=== PATIENT | male | born 1975 | race Caucasian/White ===

== ENCOUNTER 2018-08-19 13:57 | Emergency (ER) | payer BC, OTHER ==
--- NOTE | 2018-08-19 16:33 | RAD ---
RADIOGRAPH LEFT HEEL 2 VIEWS: 08/19/18 HISTORY: 42-year-old male with traumatic heel pain. FINDINGS: Bohler's angle is maintained. Trabecular markings are preserved. No fracture identified. No large ent hesophytes. IMPRESSION: Negative. POS: [facility]
--- NOTE | 2018-08-19 16:35 | RAD ---
THREE VIEWS LEFT FOOT 08/19/18 HISTORY: Left foot injury. FINDINGS: The Lisfranc joint is normally aligned. No acute fracture or dislocation is seen. There is osseous de nsity seen at the posterior and dorsal aspect of the navicular bone which may represent prior injury. This is corticated. Tiny plantar calcaneal enthesophyte is noted. IMPRESSION: No acute osseous abnormality left foot. POS: [facility]
== END 2018-08-19 15:17 | disposition home or self-care (01) ==
LOC: MADERS 13:57
DX: S90.32XA Contusion of left foot, initial encounter (principal); G47.30 Sleep apnea, unspecified; Z87.891 Personal history of nicotine dependence; Z79.899 Other long term (current) drug therapy; W17.89XA Other fall from one level to another, initial encounter

== ENCOUNTER 2019-01-18 20:01 | Emergency (ER) | payer BC ==
[2019-01-18] MEDS ORDERED: Sodium Chloride 0.9% 1,000 ML ONE (20:22)
[2019-01-18] MEDS ORDERED: methylPREDNISolone Sod Succ/PF 125 MG/2 ML VIAL ONE (20:23)
[2019-01-18] MEDS ORDERED: Famotidine In NaCl 20 mg/50 ml Premix Bag ONE (20:23)
== END 2019-01-18 21:38 | disposition home or self-care (01) ==
LOC: MADERS 20:01
DX: T78.40XA Allergy, unspecified, initial encounter (principal); G47.00 Insomnia, unspecified; Z87.891 Personal history of nicotine dependence
CPT/HCPCS: 96365; 96375; J2930; J7050

== ENCOUNTER 2020-07-02 12:59 | Emergency (ER) | payer BC ==
[2020-07-02] MEDS ORDERED: traMADol HCl 50 MG TAB ONE (13:31)
== END 2020-07-02 13:40 | disposition home or self-care (01) ==
LOC: MADERS 12:59
DX: M54.5 Low back pain (principal); M19.90 Unspecified osteoarthritis, unspecified site; Z94.7 Corneal transplant status; Z87.891 Personal history of nicotine dependence; Z79.899 Other long term (current) drug therapy
CPT/HCPCS: 99283

== ENCOUNTER 2020-07-29 09:07 | Emergency (ER) | payer BC ==
[2020-07-29] MEDS ORDERED: Dexamethasone 10 MG/ML VIAL ONE (09:31)
[2020-07-29] MEDS ORDERED: HYDROcodone/Acetaminophen 5/325 mg Tablet ONE (09:31)
[2020-07-29] MEDS ORDERED: Ketorolac Tromethamine 60 MG/2 ML VIAL ONE (09:31)
[2020-07-29] MEDS ORDERED: Diazepam 5 MG TAB ONE (09:31)
== END 2020-07-29 10:07 | disposition home or self-care (01) ==
LOC: MADERS 09:07
DX: M54.40 Lumbago with sciatica, unspecified side (principal); M19.90 Unspecified osteoarthritis, unspecified site; G47.00 Insomnia, unspecified; Z87.891 Personal history of nicotine dependence; Z79.899 Other long term (current) drug therapy
CPT/HCPCS: 96372; 99283; J1100; J1885

== ENCOUNTER 2020-07-30 02:07 | Emergency (ER) | payer BC ==
[2020-07-30] MEDS ORDERED: Diazepam 5 MG TAB ONE (02:23)
[2020-07-30] MEDS ORDERED: Acetaminophen 500 MG TAB ONE (02:23)
[2020-07-30] MEDS ORDERED: Morphine 4 MG/ML VIAL ONE (02:23)
[2020-07-30] MEDS ORDERED: Morphine 2 MG/ML SYRINGE ONE (02:23)
[2020-07-30] MEDS ORDERED: Ketorolac Tromethamine 30 MG/ML VIAL ONE (02:23)
== END 2020-07-30 02:56 | disposition home or self-care (01) ==
LOC: MADERS 02:07
DX: M54.42 Lumbago with sciatica, left side (principal); G47.00 Insomnia, unspecified; M19.90 Unspecified osteoarthritis, unspecified site; Z87.891 Personal history of nicotine dependence; Z79.899 Other long term (current) drug therapy
CPT/HCPCS: 96372; 99283; J1885; J2270

== ENCOUNTER 2020-10-25 07:19 | Emergency (ER) | payer BC ==
[2020-10-25] MEDS ORDERED: Lidocaine 1% 20 ML MDV ONE (07:55)
[2020-10-25] MEDS ORDERED: cefTRIAXone\\ROCEPHIN 1 GM VIAL ONE (07:55)
[2020-10-25] MEDS ORDERED: Fluorescein Opthalmic Strip ONE (08:33)
== END 2020-10-25 08:20 | disposition home or self-care (01) ==
LOC: MADERS 07:19
DX: H66.91 Otitis media, unspecified, right ear (principal); M19.90 Unspecified osteoarthritis, unspecified site; G47.00 Insomnia, unspecified; Z87.891 Personal history of nicotine dependence; Z79.899 Other long term (current) drug therapy
CPT/HCPCS: 96372; 99282; J0696

== ENCOUNTER 2020-11-18 10:52 | Emergency (ER) | payer BC ==
[2020-11-18] MEDS ORDERED: Ketorolac Tromethamine 30 MG/ML VIAL ONE (11:42)
[2020-11-18] MEDS ORDERED: Cyclobenzaprine 10 MG TAB ONE (11:42)
[2020-11-18] MEDS ORDERED: Ondansetron ODT 4 MG TAB ONE (11:42)
== END 2020-11-18 12:32 | disposition home or self-care (01) ==
LOC: MADERS 10:52
DX: M51.9 Unspecified thoracic, thoracolumbar and lumbosacral intervertebral disc disorder (principal); M19.90 Unspecified osteoarthritis, unspecified site; G47.00 Insomnia, unspecified; Z87.891 Personal history of nicotine dependence; Z79.899 Other long term (current) drug therapy
CPT/HCPCS: 96372; 99283; J1885; Q0162

== ENCOUNTER 2021-12-29 20:50 | Emergency (ER) | payer BC ==
[2021-12-29] MEDS ORDERED: Ketorolac Tromethamine 60 MG/2 ML VIAL ONE (21:52)
== END 2021-12-29 22:24 | disposition home or self-care (01) ==
LOC: MADERS 20:50
DX: S40.012A Contusion of left shoulder, initial encounter (principal); M19.90 Unspecified osteoarthritis, unspecified site; G47.00 Insomnia, unspecified; F17.210 Nicotine dependence, cigarettes, uncomplicated; Z79.899 Other long term (current) drug therapy; Z79.52 Long term (current) use of systemic steroids; Y00.XXXA Assault by blunt object, initial encounter
CPT/HCPCS: 96372; J1885

== ENCOUNTER 2022-01-13 07:05 | Emergency (ER) | payer BC ==
[2022-01-13] MEDS ORDERED: Naproxen 500 MG TAB ONE (07:47)
[2022-01-13] MEDS ORDERED: traMADol HCl 50 MG TAB ONE (07:47)
[2022-01-13 08:08] LABS: #Basophils 0.2 thou/uL (0.0-0.2); #Eosinphils 0.4 thou/uL (0.0-0.7); #Lymphocytes 1.8 thou/uL (1.20-3.40); #Monocytes 0.6 thou/uL (0.11-0.59); %Basophils 1.9 % (0.0-1.0); %Eosinophils 3.7 % (0.0-10.0); %Lymphocytes 18.4 % (21.0-51.0); %Monocytes 6.3 % (0.0-10.0); %Neutrophils 69.8 % (42.0-75.0); Hemoglobin 15.4 g/dL (14.0-18.0); Mean Corpuscular Hemoglobin 32.2 pg (27.0-31.0); Mean Corpuscular Volume 97.4 fL (78.0-98.0); Mean Platelet Volume 9.9 fL (7.4-10.4); Platelet Count 224 thou/uL (130-400); RBC Distribution Width 11.7 % (11.5-14.5); Red Blood Cell (RBC) Count 4.79 mill/uL (4.70-6.10)
== END 2022-01-13 09:10 | disposition home or self-care (01) ==
LOC: MADERS 07:05
DX: M79.674 Pain in right toe(s) (principal); M19.90 Unspecified osteoarthritis, unspecified site; G47.00 Insomnia, unspecified; F17.210 Nicotine dependence, cigarettes, uncomplicated; Z79.899 Other long term (current) drug therapy
CPT/HCPCS: 36415; 84550; 85025

== ENCOUNTER 2022-05-08 05:18 | Emergency (ER) | payer BC ==
[2022-05-08] MEDS ORDERED: traMADol HCl 50 MG TAB ONE (06:11)
[2022-05-08] MEDS ORDERED: Acetaminophen 325 MG TAB ONE (06:12)
[2022-05-08] MEDS ORDERED: Ibuprofen 600 MG TAB ONE (06:12)
[2022-05-08 06:32] LABS: #Basophils 0.2 thou/uL (0.0-0.2); #Eosinphils 0.4 thou/uL (0.0-0.7); #Lymphocytes 2.6 thou/uL (1.20-3.40); #Monocytes 0.8 thou/uL (0.11-0.59); #Neutrophils 7.3 thou/uL (1.40-6.50); %Basophils 1.3 % (0.0-1.0); %Eosinophils 3.9 % (0.0-10.0); %Lymphocytes 22.8 % (21.0-51.0); %Monocytes 7.2 % (0.0-10.0); %Neutrophils 64.7 % (42.0-75.0); Hemoglobin 15.9 g/dL (14.0-18.0); Mean Corpuscular Volume 96.7 fL (78.0-98.0); Mean Platelet Volume 10.2 fL (7.4-10.4); Platelet Count 236 thou/uL (130-400); RBC Distribution Width 11.3 % (11.5-14.5); Red Blood Cell (RBC) Count 4.98 mill/uL (4.70-6.10); White Blood Cell (WBC) Count 11.3 thou/uL (4.8-10.8)
[2022-05-08 06:50] LABS: ALT (SGPT) 25 U/L (8-55); AST (SGOT) 25 U/L (5-34); Albumin 4.9 g/dL (3.5-5.0); Alkaline Phosphatase 99 U/L (40-110); Anion Gap 16 mmol/L (10-20); BUN (Urea Nitrogen) 15 mg/dL (8.9-20.6); Bilirubin, Total 0.5 mg/dL (0.2-1.2); Calc. Creatinine Clearance 0 mL/min (70-130); Calcium 9.8 mg/dL (7.8-10.44); Carbon Dioxide 27 mmol/L (22-29); Chloride 104 mmol/L (98-107); Estimated GFR 106; Glucose 89 mg/dL (70-105); Potassium 4.5 mmol/L (3.5-5.1); Protein, Total 7.9 g/dL (6.0-8.3); Sodium 142 mmol/L (136-145); Uric Acid 6.7 mg/dL (3.5-7.2)
== END 2022-05-08 07:42 | disposition home or self-care (01) ==
LOC: MADERS 05:18
DX: M25.531 Pain in right wrist (principal); R22.41 Localized swelling, mass and lump, right lower limb; F17.210 Nicotine dependence, cigarettes, uncomplicated; Z79.899 Other long term (current) drug therapy
CPT/HCPCS: 80053; 84550; 85025; 85652; 86140